=== PATIENT | female | born 1990 | race African-American/Black ===

== ENCOUNTER 2018-11-15 18:07 | Inpatient (IN) | payer MEDICAID ==
[~2018-11-15] VITALS: Ht 170.2 cm; Wt 101.6 kg
[2018-11-15] MEDS ORDERED: SODIUM CHLORIDE 0.9% 1,000 ML IV ONE (18:31)
[2018-11-15 19:03] LABS: BASOPHILS % 0.4 % (0.0-2.0); EOSINOPHILS % 0.3 % (0.0-5.0); HEMATOCRIT. 25.9 % (36.0-48.0); HEMOGLOBIN. 8.8 g/dL (12.0-16.0); LYMPHOCYTES % 13.1 % (20.0-50.0); MEAN CORPUSCULAR VOLUME 82.3 fL (81.0-99.0); MEAN PLATELET VOLUME 9.2 fl (7.4-10.4); MONOCYTES % 3.3 % (2.0-8.0); NEUTROPHILS % 82.9 % (40.0-76.0); PLATELET 345 x1000/uL (130-400); RED BLOOD CELL COUNT 3.15 mill/uL (4.2-5.4); RED CELL DISTRIBUTION WIDTH 15.1 % (11.6-14.6)
[2018-11-15 19:07] LABS: CHLORIDE 110 mEq/L (98-107)
[2018-11-15 19:31] LABS: B-HCG QUANTITATIVE 10125 mIU/mL (<3)
[2018-11-15] MEDS ORDERED: MORPHINE SULFATE 4 MG/ML CPJ (NOT FOR IM USE) IV STA (21:06)
[2018-11-15] MEDS ORDERED: ONDANSETRON HCL 4MG/2ML INJ IV STA (21:06)
[2018-11-15] MEDS ORDERED: METHYLENE BLUE 50 MG/10 ML AMP IV ONE (22:37)
[2018-11-15] MEDS ORDERED: VASOPRESSIN 20 UNIT/ML 1ML ONE (22:38)
[2018-11-15] MEDS ORDERED: NORMAL SALINE 0.9% 10 ML SYR ONE (22:38)
[2018-11-15] MEDS ORDERED: MIDAZOLAM HCL 2 MG/2 ML VIAL ONE (23:00)
[2018-11-15] MEDS ORDERED: FENTANYL CITRATE/PF 50MCG/ML 2ML VIAL ONE (23:00)
[2018-11-15] MEDS ORDERED: ROCURONIUM BROMIDE 10MG/ML VIAL 5ML IV ONE (23:01)
[2018-11-15] MEDS ORDERED: LIDOCAINE HCL/PF 1% 10 MG/ML 5ML VIAL ONE (23:12)
[2018-11-15] MEDS ORDERED: ETOMIDATE 2MG/ML 10ML VIAL IV ONE (23:12)
[2018-11-15] MEDS ORDERED: CEFAZOLIN SODIUM 1000MG/VIAL ONE (23:22)
[2018-11-15] MEDS ORDERED: ONDANSETRON HCL 4MG/2ML INJ ONE (23:51)
[2018-11-16] MEDS ORDERED: ONDANSETRON HCL 4MG/2ML INJ IV PRN (01:00)
[2018-11-16] MEDS ORDERED: HYDROMORPHONE HCL/PF 2MG/ML CPJ IV PRN (01:30)
[2018-11-16 02:39] VITALS: BP 125/68
[2018-11-16 04:00] VITALS: BP 125/68
[2018-11-16 04:02] LABS: HEMATOCRIT 28.2 % (36.0-48.0); HEMOGLOBIN 9.6 g/dL (12.0-16.0); MEAN CORPUSCULAR HEMOGLOBIN 27.6 pg (28.0-32.0); MEAN CORPUSCULAR VOLUME 81.2 fL (81.0-99.0); PLATELET 202 x1000/uL (130-400); RED BLOOD CELL COUNT 3.47 mill/uL (4.2-5.4); RED CELL DISTRIBUTION WIDTH 15.9 % (11.6-14.6)
[2018-11-16] MEDS: HYDROMORPHONE HCL/PF 2MG/ML CPJ IV PRN ×4 (04:06→23:11)
[2018-11-16] MEDS ORDERED: IBUP-2030 PO (04:29)
[2018-11-16 08:00] VITALS: BP 118/68
[2018-11-16] MEDS: LACTATED RINGERS 1,000 ML IV SCH ×2 (08:36→16:57)
[2018-11-16 12:00] VITALS: BP 108/56
[2018-11-16 16:00] VITALS: BP 110/64
[2018-11-16 20:00] VITALS: BP 119/65
[2018-11-17] VITALS: BP 106/57
[2018-11-17 04:00] VITALS: BP 116/62
[2018-11-17] MEDS: HYDROMORPHONE HCL/PF 2MG/ML CPJ IV PRN ×4 (05:30→23:53)
[2018-11-17] MEDS: LACTATED RINGERS 1,000 ML IV SCH ×3 (05:32→17:00)
[2018-11-17] MEDS ORDERED: SIMETHICONE 80MG TABLET CHEW PO PRN (07:30)
[2018-11-17 08:00] VITALS: BP 103/55
[2018-11-17] MEDS: IBUPROFEN 600MG TABLET PO SCH ×4 (09:15→23:53)
[2018-11-17] MEDS: DOCUSATE SODIUM 100MG CAPSULE PO SCH ×2 (09:16→17:46)
[2018-11-17 12:00] VITALS: BP 107/63
[2018-11-17 16:00] VITALS: BP 118/68
[2018-11-17 20:00] VITALS: BP 119/83
[2018-11-18] VITALS: BP 106/64
[2018-11-18] MEDS: LACTATED RINGERS 1,000 ML IV SCH ×3 (00:39→17:49)
[2018-11-18 04:00] VITALS: BP 125/68
[2018-11-18] MEDS: IBUPROFEN 600MG TABLET PO SCH ×3 (05:56→17:50)
[2018-11-18 08:00] VITALS: BP 122/74
[2018-11-18] MEDS: HYDROMORPHONE HCL/PF 2MG/ML CPJ IV PRN (09:06)
[2018-11-18] MEDS: DOCUSATE SODIUM 100MG CAPSULE PO SCH ×2 (09:06→17:50)
[2018-11-18] MEDS ORDERED: ACETAMINOPHEN WITH CODEINE 300/30MG TABLET PO PRN (09:30)
[2018-11-18 12:00] VITALS: BP 117/64
[2018-11-18 16:00] VITALS: BP 108/60
[2018-11-18 20:00] VITALS: BP 115/74
[2018-11-18 23:46] LABS: BASOPHILS % 0.3 % (0.0-2.0); EOSINOPHILS % 1.4 % (0.0-5.0); LYMPHOCYTES % 23.6 % (20.0-50.0); MEAN CORPUSCULAR HEMOGLOBIN 28.5 pg (28.0-32.0); MEAN CORPUSCULAR VOLUME 81.2 fL (81.0-99.0); MEAN PLATELET VOLUME 8.7 fl (7.4-10.4); MONOCYTES % 6.4 % (2.0-8.0); NEUTROPHILS % 68.3 % (40.0-76.0); PLATELET 192 x1000/uL (130-400); RED BLOOD CELL COUNT 2.47 mill/uL (4.2-5.4); RED CELL DISTRIBUTION WIDTH 15.2 % (11.6-14.6)
[2018-11-19 00:15] VITALS: BP 105/64
[2018-11-19] MEDS: IBUPROFEN 600MG TABLET PO SCH ×2 (00:26→05:37)
[2018-11-19] MEDS: LACTATED RINGERS 1,000 ML IV SCH ×2 (00:26→10:06)
[2018-11-19 02:56] LABS: CLARITY URINE CLEAR (CLEAR); COLOR URINE ORANGE (YELLOW); KETONES URINE NEGATIVE (NEGATIVE); LEUKOCYTE ESTERASE URINE NEGATIVE (NEGATIVE); NITRITE URINE NEGATIVE (NEGATIVE); OCCULT BLOOD URINE 3+ (NEGATIVE); PH URINE 8.5 (4.5-8.0); PROTEIN URINE NEGATIVE (NEGATIVE); SPECIFIC GRAVITY URINE 1.007 (1.005-1.030)
[2018-11-19 04:00] VITALS: BP 120/69
[2018-11-19 08:00] VITALS: BP 105/70
[2018-11-19] MEDS ORDERED: FERROUS SULFATE 325MG TABLET PO SCH (08:10)
[2018-11-19] MEDS: DOCUSATE SODIUM 100MG CAPSULE PO SCH (10:05)
[2018-11-19 11:15] VITALS: BP 105/70
[2018-11-19 12:00] VITALS: BP 137/85
== END 2018-11-19 13:30 | disposition home or self-care (01) | DRG 545 ==
LOC: ER 18:07 → EDBEDREQ 21:10 → EDBEDREQTM 21:10 → 7WST 21:21 → EDBEDREQTM 21:23 → ENRESERV 22:02 → SUPCPDRO 22:12 → ER 23:07
PROVIDERS: ADMIT Obstetrics & Gynecology; ATTEND Obstetrics & Gynecology
PROC: 30233N1 Transfusion of Nonautologous Red Blood Cells into Peripheral Vein, Percutaneous Approach (ICD-10-PCS; 2018-11-15)
PROC: 0UB60ZZ Excision of Left Fallopian Tube, Open Approach (ICD-10-PCS; principal; 2018-11-16)
PROC: 10T20ZZ Resection of Products of Conception, Ectopic, Open Approach (ICD-10-PCS; 2018-11-16)
DX: O00.102 Left tubal pregnancy without intrauterine pregnancy (principal); K66.1 Hemoperitoneum; R33.9 Retention of urine, unspecified; O99.011 Anemia complicating pregnancy, first trimester; D64.9 Anemia, unspecified; D72.829 Elevated white blood cell count, unspecified; O26.891 Other specified pregnancy related conditions, first trimester; Z3A.09 9 weeks gestation of pregnancy
CPT/HCPCS: 36415; 76801; 84702; 85027; 86850; 86900; 86920; 88305; 99291; J0690; J1170; J2250; J2405; J3010; J3490; J7030; P9016; Q9968; A4315